=== PATIENT | male | born 1950 | race Caucasian/White ===

== ENCOUNTER 2020-06-09 05:55 | Day surgery (SDC) | payer OTHER, MEDICARE ==
[2020-06-05 11:08] LABS: BUN Blood Urea Nitrogen 21 mg/dL (7-18); Bicarbonate 29 mmol/L (21-32); Glucose Level 94 mg/dL (74-106); Potassium 4.1 mmol/L (3.5-5.1); Sodium Level 142 mmol/L (136-145)
[2020-06-05 11:26] LABS: Absolute Lymphocytes (CBC) 1.4 K/uL (0.7-4.9); Basophils % 0.9 % (0-1.3); Hematocrit 43.1 % (39.6-49.0); Lymphocytes % 30.5 % (15.3-44.8); MPV 9.9 fL (7.6-11.3); RBC Red Blood Cell Count 4.82 M/uL (4.33-5.43)
[2020-06-09] MEDS ORDERED: Ringers Lactate 1,000 ML IV ONE ×2 (06:27→07:11)
[2020-06-09] MEDS ORDERED: CEFAZOLIN/SWI 2gm 2 GM/20 ML SYR ONE (06:27)
[2020-06-09] MEDS ORDERED: MIDAZOLAM HCL 2 MG/2 ML INJ ONE (06:46)
[2020-06-09] MEDS ORDERED: FENTANYL CITR 100 MCG/2 ML ONE (06:46)
[2020-06-09] MEDS ORDERED: LIDOCAINE 1% MPF 5 ML VIAL ONE (06:46)
[2020-06-09] MEDS ORDERED: ROPLVACAINE HCL 40 ML ONE (06:46)
[2020-06-09] MEDS ORDERED: NS 0.9% VIAL 10 ML ONE (06:46)
[2020-06-09] MEDS ORDERED: dexAMETHasone 10 MG/ML VIAL ONE ×2 (06:46→07:35)
[2020-06-09] MEDS ORDERED: EPINEPHRINE/PF 1 MG/ML AMP ONE (07:11)
[2020-06-09] MEDS ORDERED: propofoL 200 MG/20 ML VIAL IV ONE (07:35)
[2020-06-09] MEDS ORDERED: LIDOCAINE 2% MPF 5 ML VIAL ONE (07:36)
[2020-06-09] MEDS ORDERED: KETOROLAC 30 MG/ML INJ ONE (07:36)
[2020-06-09] MEDS ORDERED: ROCURONIUM 50 MG/5 ML VIAL IV ONE (07:36)
[2020-06-09] MEDS ORDERED: ONDANSETRON 4 MG/2 ML VIAL ONE (07:37)
[2020-06-09] MEDS ORDERED: EPHEDRINE SULF 50 MG/ML VIAL ONE (08:26)
--- NOTE | 2020-06-09 10:00 | P.BOP ---
Preoperative diagnosis: left shoulder rotator cuff tear, impingement syndrome, AC arthritis Postoperative diagnosis: same, left glenoid chondromalacia Primary procedure: left shoulder arthroscopic rotator cuff repair with glenoid chondroplasy Secondary procedure: left shoulder arthroscopic subacromial decompression Other procedure(s): left shoulder arthroscopic distal clavicle excision Fruit Grower: NONE,NONE Estimated blood loss: 10 cc Specimen: none Findings: see dictation Anesthesia: General Complications: None Implants: 1-4.75 mm Arthrex swivelock Fluids & blood products: per anesthesia record Transferred to: Recovery Room Condition: Good
[2020-06-09 10:01] VITALS: TEMP 97.3
[2020-06-09 10:38] VITALS: BP 102/69; O2SAT 94
--- NOTE | 2020-06-09 10:47 | RAD REPORT ---
EXAM DESCRIPTION: RAD - Shoulder 1 View - 06/09/2020 10:25 am CLINICAL HISTORY: S/P ROTATOR CUFF REPAIR COMPARISON: Shoulder Left Wo Cont dated 05/09/2020 FINDINGS: Single portable AP projection of the left shoulder obtained. Patient is status post rotato r cuff repair. No fracture or dislocation. AC joint degenerative changes are present. No abnormal calcification or f oreign body. IMPRESSION: Postoperative left shoulder examination shows no suspicious or unexpected finding.
[2020-06-09] MEDS ORDERED: HYDROCODONE/APAP 7.5/325 MG TAB ONE (10:59)
--- NOTE | 2020-06-13 11:15 | OP ---
Date of Procedure: 06/09/2020 Surgeon: Jan Gilbert MD Preoperative Diagnoses: 1. Left shoulder rotator cuff tear. 2. Left shoulder impingement syndrome. 3. Left shoulder acromioclavicular joint arthrosis. Postoperative Diagnoses: 1. Left shoulder rotator cuff tear. 2. Left shoulder impingement syndrome. 3. Left shoulder acromioclavicular joint arthrosis. Procedures Performed: 1. Left shoulder arthroscopic rotator cuff repair. 2. Left shoulder arthroscopic subacromial decompression. 3. Left shoulder arthroscopic distal clavicle excision. 4. Left shoulder chondroplasty of the glenoid surface. Anesthesia: General endotracheal with interscalene block. Implants: One 4.75 mm Arthrex SwiveLock. Indication For Procedure: Franklyn is a 69-year-old male, who presented to my clinic with signs and symptoms and MRI findings consistent with right shoulder rotator cuff tear as well as impingement syndrome, night pain and difficulty with activities of daily living. I discussed with the patient at length risks and benefits associated with operative and nonoperative treatment. He expressed understanding and elected to proceed with operative treatment. Description Of Procedure: After informed consent was obtained, the patient was identified in the preoperative holding area. The left shoulder was marked. The patient was then brought back to the PACU where he underwent interscalene block by Anesthesia. He was then taken to the operating room, transferred to the operative table in supine fashion, and placed under general endotracheal anesthesia. He was then placed in the beach chair position with his extremities well padded. The left upper extremity was then prepped and draped in usual sterile fashion. A time-out was initiated. Correct patient and procedure were confirmed and identified. The patient did receive his preoperative prophylactic antibiotics. Via the posterior portal position, a spinal needle was introduced into the glenohumeral joint and was injected with 30 cc of normal saline to distend the capsule. A posterior portal was created. The arthroscope was brought in via the posterior portal position under direct visualization and anterior portal was created, which was made high for distal clavicle excision and a diagnostic arthroscopy was performed. The patient had an intact superior labrum. The anterior and posterior labrum were intact and stable to probe and the biceps tendon anchor was intact with no significant tenosynovitis noted. Subscapularis was found to be intact. No loose bodies were identified within the axillary pouch. The patient was noted to have some chondral injury of the glenoid surface and a chondroplasty was performed using an arthroscopic shaver The arthroscope was then brought into the subacromial space and a subacromial bursectomy was performed. A full-thickness tear was then identified and the footprint of the supraspinatus was debrided with an arthroscopic shaver. A SutureTape was then passed through the rotator cuff tear in inverted horizontal mattress type fashion and anchored to the greater tuberosity using a SwiveLock. A suture from the anchor was then passed again through the anterior aspect of the supraspinatus and the remaining sutures were cut. Next, attention was then taken to the subacromial bursectomy. A radiofrequency ablator was then used to debride the soft tissue of the undersurface of the acromion. The subacromial burs were then debrided using an arthroscopic bur and an acromioplasty was then performed. Next, an attention was taken to the distal clavicle. An arthroscopic bur was then used to remove approximately 5 mm of distal clavicle without complications. Arthroscopic instruments were then removed without complications. Incisions were irrigated with normal saline and approximated using 2-0 Vicryl and 3-0 Monocryl. Sterile dressings were applied. The patient was placed in a shoulder immobilizer, awakened, and transferred to PACU in stable condition. Postoperative Plan: Nonweightbearing on his left upper extremity. He will remain in the shoulder immobilizer for 6 weeks and follow the medium rotator cuff repaair protocol. HIRA/MARISOL Voice ID: [id number] Report ID: [id number] SHANA
== END 2020-06-09 11:10 | disposition home or self-care (01) ==
LOC: OR 05:55
PROVIDERS: ATTEND Orthopaedic Surgery Sports Medicine
PROC: 0RHK44Z Insertion of Internal Fixation Device into Left Shoulder Joint, Percutaneous Endoscopic Approach (ICD-10-PCS; 2020-06-09)
PROC: 0RNK4ZZ Release Left Shoulder Joint, Percutaneous Endoscopic Approach (ICD-10-PCS; 2020-06-09)
PROC: 0PBB4ZZ Excision of Left Clavicle, Percutaneous Endoscopic Approach (ICD-10-PCS; 2020-06-09)
PROC: 0LQ24ZZ Repair Left Shoulder Tendon, Percutaneous Endoscopic Approach (ICD-10-PCS; principal; 2020-06-09 07:30)
DX: S46.012A Strain of muscle(s) and tendon(s) of the rotator cuff of left shoulder, initial encounter (principal); M19.012 Primary osteoarthritis, left shoulder; M75.22 Bicipital tendinitis, left shoulder; M75.42 Impingement syndrome of left shoulder; M25.512 Pain in left shoulder; G89.29 Other chronic pain; Z20.822 Contact with and (suspected) exposure to COVID-19
CPT/HCPCS: 85025; 80048; 36415; 85610; 85730; 73020; 29827; 29826; 29824; U0002; J2704; J0171; J2250; J3010; J1100 ×2; J2795; J0690; J7120 ×2; J2405